=== PATIENT | female | born 1995 | race Caucasian/White ===

== ENCOUNTER 2022-12-24 21:35 | Emergency (ER) | payer SELFPAY ==
[2022-12-24] MEDS ORDERED: Sodium Chloride 0.9% 1,000 ML ONE (22:04)
[2022-12-24] MEDS ORDERED: Metoclopramide HCl 10 MG/2 ML VIAL ONE (22:04)
[2022-12-24] MEDS ORDERED: diphenhydrAMINE 50 MG/ML VIAL ONE (22:04)
[2022-12-24] MEDS ORDERED: Sodium Chloride 0.9% 100 ML ONE (22:04)
== END 2022-12-24 22:50 | disposition home or self-care (01) ==
LOC: NAV ERS 21:35
DX: G43.909 Migraine, unspecified, not intractable, without status migrainosus (principal); F17.290 Nicotine dependence, other tobacco product, uncomplicated
CPT/HCPCS: 96365; 96375; J1200; J2765; J7050